=== PATIENT | female | born 2000 | race Caucasian/White ===

== ENCOUNTER 2018-05-21 23:26 | Emergency (ER) | payer OTHER ==
[2018-05-22 00:35] LABS: Urine Appearance Clear; Urine Bacteria 1+ (Absent); Urine Bilirubin Negative (Negative); Urine Blood 1+ (Negative); Urine Color Amber; Urine Glucose Negative (Negative); Urine Ketones Negative (Negative); Urine Nitrite Positive (Negative); Urine Protein Negative (Negative); Urine Red Blood Cell 3+(>10/hpf) (Absent); Urine Specific Gravity 1.015 (1.010-1.030); Urine Squamous Epithelial Cell Present (Absent); Urine Urobilinogen Positive (Negative); Urine White Blood Cell 3+(>20/hpf) (Absent)
[2018-05-22] MEDS ORDERED: Ciprofloxacin TAB* 500 MG PO ONE (01:09)
--- NOTE | 2018-05-22 01:10 | ED ---
GI/ HPI - HPI Summary HPI Summary: 17-year-old female presents with dysuria today. She admits to urgency and frequency. No flank pain. No fevers. No nausea or vomiting. No abnormal vaginal discharge. No abdominal pain. She states she took some Azo. Is on control. no hx of utis. - History of Current Complaint Chief Complaint: EDUrogenitalProblems Time Seen by Provider: 05/22/18 01:04 Stated Complaint: "I THINK I HAVE A UTI" PER PT Pain Intensity: 6 - Allergy/Home Medications Allergies/Adverse Reactions: Allergies Allergy/AdvReac Type Severity Reaction Status Date / Time No Known Allergies Allergy Verified 05/21/18 23:28 PMH/Surg Hx/FS Hx/Imm Hx Endocrine/Hematology History: Denies: Hx Anticoagulant Therapy Respiratory History: Denies: Hx Asthma Infectious Disease History: No Infectious Disease History: Denies: Traveled Outside the [place] in Last 30 Days - Family History Known Family History: Positive: Non-Contributory - Social History Substance Use Type: Reports: None Smoking Status (MU): Never Smoked Tobacco Review of Systems Negative: Fever Negative: Chest Pain Negative: Shortness Of Breath Negative: Abdominal Pain Positive: dysuria. Negative: flank pain All Other Systems Reviewed And Are Negative: Yes Physical Exam Triage Information Reviewed: Yes Vital Signs On Initial Exam: Initial Vitals Temp Pulse Resp BP Pulse Ox 97.8 F 70 18 132/76 99 05/21/18 23:28 05/21/18 23:28 05/21/18 23:28 05/21/18 23:28 05/21/18 23:28 Vital Signs Reviewed: Yes Appearance: Positive: Well-Appearing Skin: Positive: Warm, Dry Head/Face: Positive: Normal Head/Face Inspection Eyes: Positive: Normal, Conjunctiva Clear ENT: Positive: Pharynx normal Respiratory/Lung Sounds: Positive: Clear to Auscultation, Breath Sounds Present Cardiovascular: Positive: Normal, RRR Abdomen Description: Positive: Nontender, Soft Bowel Sounds: Positive: Present Musculoskeletal: Positive: Normal Neurological: Positive: Normal Psychiatric: Positive: Normal Diagnostics - Vital Signs Vital Signs Temp Pulse Resp BP Pulse Ox 05/21/18 23:28 97.8 F 70 18 132/76 99 - Laboratory Lab Results: Lab Results 05/22/18 Range/Units 00:00 Urine Color Ayla Urine Appearance Clear Urine pH 6.0 (5-9) Ur Specific [place] 1.015 (1.010-1.030) Urine Protein Negative (Negative) Urine Ketones Negative (Negative) Urine Blood 1+ A (Negative) Urine Nitrate Positive A (Negative) Urine Bilirubin Negative (Negative) Urine Urobilinogen Positive A (Negative) Ur Leukocyte Esterase 1+ A (Negative) Urine WBC (Auto) 3+(>20/hpf) A (Absent) Urine RBC (Auto) 3+(>10/hpf) A (Absent) Ur Squamous Epith Cells Present A (Absent) Urine Bacteria 1+ A (Absent) Urine Glucose Negative (Negative) Lab Statement: Any lab studies that have been ordered have been reviewed, and results considered in the medical decision making process. GIGU Course/Dx - Course Course Of Treatment: 17-year-old female presents with dysuria today. She admits to urgency and frequency. No flank pain. No fevers. No nausea or vomiting. No abnormal vaginal discharge. No abdominal pain. She states she took some Azo. Is on control. no hx of utis. On exam nontender abdomen. no CVA tenderness. No fever. urine shows uti. We'll treat with Cipro. Told to increase fluids. Patient understands agrees with plan. - Diagnoses Differential Diagnoses - Female: Pyelonephritis, Urinary Tract Infection, Ureteral Calculi Provider Diagnoses: UTI (urinary tract infection) Discharge - Sign-Out/Discharge Documenting (check all that apply): Patient Departure Patient Received Moderate/Deep Sedation with Procedure: No - Discharge Plan Condition: Good Disposition: HOME Prescriptions: Ciprofloxacin TAB* [Cipro 500 MG TAB*] 500 mg PO BID #9 tab Patient Education Materials: Urinary Tract Infection in Women (ED) Referrals: No Primary Care Phys,NOPCP [Primary Care Provider] - Additional Instructions: Take Cipro twice a day for 5 days drink plenty of fluids Return to ED if develop fever, vomiting or any new or worsening symptoms - Billing Disposition and Condition Condition: GOOD Disposition: Home
[2018-05-22 01:25] VITALS: BP 120/79
== END 2018-05-22 01:24 | disposition home or self-care (01) ==
LOC: ED 23:26
DX: N39.0 Urinary tract infection, site not specified (principal); R30.0 Dysuria
CPT/HCPCS: 81003; 81015; 87086; 99282; A9270-GY